=== PATIENT | female | born 1995 | race Two or more races ===

== ENCOUNTER 2019-03-09 13:44 | Emergency (ER) | payer OTHER ==
[2019-03-09] MEDS ORDERED: IBUPROFEN 200 MG TABLET PO ONE (14:09)
--- NOTE | 2019-03-09 14:11 | PDOC ---
Rapid Medical Evaluation Time Seen by Provider: 03/09/19 14:06 Medical Evaluation: 03/09/19 14:06 CC: fever, cough, blood-streaked sputum Pt is an a 23 y/o female with cough and fever since yesterday. States she has had blood streaked sputum several times. Brief exam: clear lungs, wet sounding cough appreciated. Orders: chest XR, motrin Pt to proceed to ED for further eval. Discharge Disposition - Diagnosis Cough - Referrals - Patient Instructions - Post Discharge Activity
[2019-03-09 14:12] VITALS: BP 128/83; BMI 40.7
[2019-03-09] MEDS ORDERED: ACETAMINOPHEN 325 MG TABLET (FP) PO ONE (14:28)
--- NOTE | 2019-03-09 14:29 | PDOC ---
History of Present Illness - General Chief Complaint: Respiratory Stated Complaint: COUGHING UP BLOOD Time Seen by Provider: 03/09/19 14:06 History Source: Patient - History of Present Illness Initial Comments: 03/09/19 16:29 Chief complaint: Fever and cough Patient 23-year-old female, complaining of 1 day of fever, cough, patient concerned because she coughed up blood, vomited once this morning also had small amount of blood mixed in. Patient has not vomited since her had episode of coughing with blood since then. Patient is able to tolerate p.o. Patient denies any abdominal pain. Patient's last menstruation was in January. GENERAL/CONSTITUTIONAL: No fever, weakness. dizziness HEAD, EYES, EARS, NOSE AND THROAT: No change in vision. No ear pain or discharge. No sore throat. CARDIOVASCULAR: No chest pain RESPIRATORY: No shortness of breath, +cough GASTROINTESTINAL: No pain, nausea, +vomiting once, no:diarrhea or constipation GENITOURINARY: No dysuria MUSCULOSKELETAL: No neck or back pain SKIN: No rash NEUROLOGIC: No headache, vertigo, loss of consciousness, or loss of sensation. GENERAL: The patient is awake, alert, and fully oriented, in no acute distress. HEAD: Normal with no signs of trauma. EYES: Pupils equal, round and reactive to light, sclera anicteric, conjunctiva clear. ENT: pharynx: no erythema, no exudate, uvula midline NECK: supple CHEST: clear, frequent coughing, nontender, rr ABD: soft, nontender BACK: no tenderness or signs of injury EXTREMITIES: Normal range of motion, no edema. NEUROLOGICAL: Normal speech, normal gait. SKIN: Warm, Dry Past History - Past Medical History Allergies/Adverse Reactions: Allergies Allergy/AdvReac Type Severity Reaction Status Date / Time No Known Allergies Allergy Verified 03/09/19 14:06 Home Medications: Ambulatory Orders Albuterol Sulfate Inhaler - [Ventolin HFA Inhaler -] 2 inh PO Q4H #1 inh Oseltamivir Phosphate [Tamiflu] 75 mg PO BID #10 capsule 03/09/19 COPD: No Other medical history: PCOS - Psycho Social/Smoking Cessation Hx Smoking History: Never smoked *Physical Exam - Vital Signs Last Vital Signs Temp Pulse Resp BP Pulse Ox 100.8 F H 125 H 20 128/83 97 03/09/19 14:08 03/09/19 14:08 03/09/19 14:08 03/09/19 14:08 03/09/19 14:08 Medical Decision Making - Medical Decision Making 03/09/19 16:48 Healthy 23-year-old female with 1 day of flulike symptoms, concerned because she coughed up some blood in her mucus and she vomited once with some blood in it. Has not vomited since and is drinking p.o., has not coughed up blood since. Patient is running fever and has no wheezing but can hear slight wheezing when coughing. Patient's last menstruation was in January, will determine and confirm , will get chest x-ray and reassess. Chest x-ray is negative, patient is within the window for Tamiflu, discussed with her and she would like to take it. Will prescribe Tamiflu and albuterol inhaler given that she has some wheezing on cough although she has no respiratory distress, hypoxia or wheezing on auscultation. Discussed fully with patient she understands only return if her symptoms become worse. Discussed issues, findings, results, applicable medications and treatments and follow-up. All these were understood and all questions were answered 03/09/19 17:05 Discharge vitals, temperature 100.1, heart rate 102 03/09/19 18:57 Discharge - Discharge Information Problems reviewed: Yes Clinical Impression/Diagnosis: Cough Condition: Stable Disposition: HOME - Admission No - Additional Discharge Information Prescriptions: Albuterol Sulfate Inhaler - [Ventolin HFA Inhaler -] 2 inh PO Q4H #1 inh Oseltamivir Phosphate [Tamiflu] 75 mg PO BID #10 capsule - Follow up/Referral - Patient Discharge Instructions Patient Printed Discharge Instructions: DI for Influenza -- Adult Additional Instructions: Drink 2-3 L of water daily Take Tylenol 650 mg every 4 hours or Motrin 600 mg every 6 hours for fever and pain Take Tamiflu 1 tablet every 12 hours for 5 days, you can use the inhaler, 2 puffs every 4 hours for cough and wheezing Return to the nearest ER if short of breath, unable to swallow or feeling sicker Followup with your doctor in one to 2 days - Post Discharge Activity Work/Back to School Note: Back to Work - Transfer to Acute Care Facility Receiving Facility Name: [facility]
[2019-03-09] MEDS ORDERED: ACETAMINOPHEN 325 MG TABLET (FP) ONE (14:32)
[2019-03-09 17:06] VITALS: PULSE 102; TEMP 100.1
== END 2019-03-09 17:05 | disposition home or self-care (01) ==
LOC: JERFT 13:44
DX: J11.1 Influenza due to unidentified influenza virus with other respiratory manifestations (principal)
CPT/HCPCS: 71046-TC-FY; 84703; 87070; 87880; 99282-25